=== PATIENT | female | born 1960 | race Two or more races ===

== ENCOUNTER 2019-01-02 22:37 | Emergency (ER) | payer OTHER ==
[2019-01-02] MEDS ORDERED: Albuterol/Ipratropium NEB.SOL* Albuterol 2.5 MG/Ipratropium 0.5 MG 3 ML INH ONE (22:56)
[2019-01-02] MEDS ORDERED: Acetaminophen TAB* 325 MG PO ONE (22:57)
[2019-01-02] MEDS ORDERED: methylPREDNISolone 125 MG* 2 ML VIAL IV ONE (23:08)
--- NOTE | 2019-01-02 23:13 | ED ---
Respiratory - HPI Summary HPI Summary: 58 year old female presents with cough today. She admits to sinus congestion for the past couple days. She states that symptoms started in her nose and then went down to lungs. She admits to little short of breath. She does have a history of reactive airway disease and has asthma when sick. She denies any smoking history. No chest pain. She has a cough that is productive. No fevers. No vomiting. No nausea vomiting. Has no sore throat. Has been using [id number] cough medications. - History of Current Complaint Chief Complaint: EDShortnessOfBreath Stated Complaint: SOB PER PT Time Seen by Provider: 01/02/19 22:50 Pain Intensity: 0 - Allergy/Home Medications Allergies/Adverse Reactions: Allergies Allergy/AdvReac Type Severity Reaction Status Date / Time hydrochlorothiazide Allergy Rash Verified 01/02/19 22:39 LODINE Allergy Hives Uncoded 01/02/19 22:39 PMH/Surg Hx/FS Hx/Imm Hx Endocrine/Hematology History: Denies: Hx Anticoagulant Therapy, Hx Diabetes Cardiovascular History: Denies: Hx Hypertension, Hx Pacemaker/ICD Respiratory History: Reports: Hx Asthma Denies: Hx Chronic Obstructive Pulmonary Disease (COPD) History: Denies: Hx Renal Disease Musculoskeletal History: Denies: Hx Osteoporosis Sensory History: Denies: Hx Hearing Aid Psychiatric History: Denies: Hx Panic Disorder - Cancer History Hx Chemotherapy: No Hx Radiation Therapy: No - Surgical History Surgery Procedure, Year, and Place: D&C. TUBAL LIGATION Infectious Disease History: No Infectious Disease History: Denies: Traveled Outside the [place] in Last 30 Days - Family History Known Family History: Positive: Non-Contributory - Social History Alcohol Use: None Substance Use Type: Reports: None Hx Tobacco Use: No Smoking Status (MU): Never Smoked Tobacco Review of Systems Negative: Fever Positive: Nasal Discharge Negative: Chest Pain Positive: Shortness Of Breath, Cough Negative: Abdominal Pain All Other Systems Reviewed And Are Negative: Yes Physical Exam Triage Information Reviewed: Yes Vital Signs On Initial Exam: Initial Vitals Temp Pulse Resp BP Pulse Ox 100.1 F 107 20 189/95 98 01/02/19 22:39 01/02/19 22:39 01/02/19 22:39 01/02/19 22:39 01/02/19 22:39 Vital Signs Reviewed: Yes Appearance: Positive: Well-Appearing Skin: Positive: Warm, Dry Head/Face: Positive: Normal Head/Face Inspection Eyes: Positive: Normal, Conjunctiva Clear ENT: Positive: Pharynx normal Respiratory/Lung Sounds: Positive: Breath Sounds Present, Wheezes Cardiovascular: Positive: Normal, RRR Abdomen Description: Positive: Nontender, Soft Bowel Sounds: Positive: Present Musculoskeletal: Positive: Normal Neurological: Positive: Normal Psychiatric: Positive: Normal Procedures - Sedation Patient Received Moderate/Deep Sedation with Procedure: No Diagnostics - Vital Signs Vital Signs Temp Pulse Resp BP Pulse Ox 01/02/19 22:39 100.1 F 107 20 189/95 98 - Laboratory Result Diagrams: 01/02/19 23:17 01/02/19 23:17 Lab Statement: Any lab studies that have been ordered have been reviewed, and results considered in the medical decision making process. - Radiology chest Radiology Interpretation Completed By: ED Physician Summary of Radiographic Findings: no pneumonia Disposition - Course Course Of Treatment: 58 year old female presents with cough today. She admits to sinus congestion for the past couple days. She states that symptoms started in her nose and then went down to lungs. She admits to little short of breath. She does have a history of reactive airway disease and has asthma when sick. She denies any smoking history. No chest pain. She has a cough that is productive. No fevers. No vomiting. No nausea vomiting. Has no sore throat. Has been using csmi-lek-[id number] cough medications. On exam lungs wheezing heard. wbc normal. Troponin 0. CRP elevated. Chest x-ray shows no pneumonia. gave breathing treatment. wbc normal. crp elevated. troponin zero. patient improved with breathing treatment. will give inhaler and steriod. told follow p with primary. patient understand and agrees with plan. - Differential Dx - Cardiopulmonary Differential Diagnoses - Cardiopulmonary: Asthma, Bronchitis, Influenza, Lower Resp Infection - Diagnoses Provider Diagnoses: Bronchitis Discharge ED - Sign-Out/Discharge Documenting (check all that apply): Patient Departure - Discharge Plan Condition: Good Disposition: HOME Patient Education Materials: Acute Bronchitis (ED) Referrals: Lynda Arevalo MD [Primary Care Provider] - Additional Instructions: Use Tessalon three times a day for cough Use inhaler one puff every 4 hours for cough as needed Take steroid once a day for 4 days Follow up with primary care physician in 5 days Return to ED if develop any new or worsening symptoms - Billing Disposition and Condition Condition: GOOD Disposition: Home
[2019-01-02 23:33] LABS: ABS Eosinophils 0.3 10^3/ul (0-0.6); ABS Lymphocytes 1.6 10^3/ul (1.0-4.8); ABS Monocytes 0.4 10^3/ul (0-0.8); ABS Neutrophils 5.5 10^3/ul (1.5-7.7); Eosinophil % 3.2 %; Hematocrit 35 % (35-47); Hemoglobin 12.2 g/dL (12.0-16.0); Lymphocyte % 20.1 %; Mean Corpuscular HGB Conc 35 g/dL (31-36); Mean Corpuscular Hemoglobin 30 pg (27-31); Mean Corpuscular Volume 86 fL (80-97); Mean Platelet Volume 7.7 fL (7.4-10.4); Nucleated Red Blood Cells % 0.1; Platelet Count 269 10^3/uL (150-450); Red Cell Distribution Width 13 % (10-15); White Blood Count 7.8 10^3/uL (3.5-10.8)
[2019-01-02 23:48] LABS: Albumin 4.6 g/dL (3.2-5.2); Albumin/Globulin Ratio 1.6 (1-3); BUN/Creatinine Ratio 12.1 (8-20); C Reactive Protein 66.56 mg/L (<8.01); Calcium 9.5 mg/dL (8.6-10.3); EGFR African American 69.5 (>60); EGFR Non-African American 57.4 (>60); Globulin 2.9 g/dL (2-4); Potassium 3.5 mmol/L (3.5-5.0); Total Bilirubin 0.5 mg/dL (0.2-1.0); Total Protein 7.5 g/dL (6.4-8.9)
[2019-01-03 00:35] LABS: Influenza A Molecular NEGATIVE (Negative); Influenza B Molecular NEGATIVE (Negative)
[2019-01-03 00:47] VITALS: BP 146/93
--- OUTSIDE RECORDS SUMMARY | 2019-01-07 14:37 | XMS REPORT | Continuity of Care Document ---
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 Helper [phone] Medicine Problems Description No Information Available Social History Type Date Description Comments Sex Unknown ETOH Use Currently consumes alcohol Tobacco Use Start: Unknown End: Patient is a former smoker Unknown Smoking Status Reviewed: 11/27/18 Patient is a former smoker Exercise Type/Frequency Exercises regularly Allergies, Adverse Reactions, Alerts Active Allergies Reaction Severity Comments Date Lodine 03/28/2016 Hydrochlorothiazide 03/28/2016 Medications Active Medications SIG Qnty Indications Ordering Provider Date Pantoprazole Sodium 1 by mouth 30tabs Other Ordering 11/27/2018 40mg every day Provider Tablets DR Bupropion HCL ER (XL) 1 by mouth Other Ordering 11/27/2018 every day Provider 150mg Tablets ER 24HR Montelukast Sodium 1 by mouth 30tabs Other Ordering 11/27/2018 10mg every day Provider Tablets Vitamin D2 take 50,000 12tabs Other Ordering 11/27/2018 2000Unit units once a Provider Tablets week Citalopram Lynda Arevalo, Hydrobromide 40mg Tablets Trazodone HCL Unknown 50mg Tablets Meloxicam Lynda Arevalo, 15mg Tablets Valacyclovir HCL Unknown 1gm Tablets Fluoxetine HCL Unknown 20mg Capsules Alprazolam Unknown 0.25mg Tablets Immunizations Description No Information Available Vital Signs Date Vital Result Comment 11/27/2018 8:18am Height 65 inches 5'5" Weight 168.00 lb Heart Rate 86 /min BP Systolic 132 mmHg BP Diastolic 70 mmHg O2 % BldC Oximetry 97 % BMI (Body Mass Index) 28.0 kg/m2 Neck Circumference in inches 14 04/25/2016 1:24pm Height 65 inches 5'5" Weight 184.00 lb Heart Rate 88 /min BP Systolic 129 mmHg BP Diastolic 82 mmHg Body Temperature 97.1 F Pain Level 1 BMI (Body Mass Index) 30.6 kg/m2 Results Description No Information Available Procedures Description No Information Available Medical Devices Description No Information Available Encounters Type Date Location Provider Dx Diagnosis Office Visit 11/27/2018 [facility] Irena Verdin MD R06.83 Snoring 8:30a [facility] R53.83 Other fatigue G25.81 Restless legs syndrome Assessments Date Code Description Provider 11/27/2018 R06.83 Snoring Irena Verdin MD 11/27/2018 R53.83 Other fatigue Irena Verdin MD 11/27/2018 G25.81 Restless legs syndrome Irena Verdin MD Plan of Treatment 11/27/2018 - Irena Verdin, MDR06.83 SnoringNew Orders:Home Sleep Testing, Scheduled: 11/27/18Follow up:1 weekR53.83 Other ogkadmqI85.81 Restless legs syndromeNew Labs:Ferritin, Ordered: 11/27/18Iron & Iron Binding Capacity, Ordered: 11/27/18TSH (Thyroid Stim Horm), Ordered: 11/27/18Magnesium, Ordered: 11/27/18 Functional Status Description No Information Available Mental Status Description No Information Available Referrals Description No Information Available
--- OUTSIDE RECORDS SUMMARY | 2019-01-07 14:37 | XMS REPORT | Continuity of Care Document ---
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 Medicine Problems Description No Information Available Social History Type Date Description Comments Sex Unknown ETOH Use Currently consumes alcohol Tobacco Use Start: Unknown End: Patient is a former smoker Unknown Smoking Status Reviewed: 12/13/18 Patient is a former smoker Exercise Type/Frequency Exercises regularly Allergies, Adverse Reactions, Alerts Active Allergies Reaction Severity Comments Date Lodine 03/28/2016 Hydrochlorothiazide 03/28/2016 Medications Active Medications SIG Qnty Indications Ordering Date Provider Vitamin D 1 by mouth every 90tabs Nydia 12/13/2018 (Cholecalciferol) TRACIE Baron 25mcg (1000 Ut) Tablets Pantoprazole Sodium 1 by mouth every 30tabs Other Ordering 11/27/2018 day Provider 40mg Tablets DR Bupropion HCL ER 1 by mouth every Other Ordering 11/27/2018 (XL) day Provider 150mg Tablets ER 24HR Montelukast Sodium 1 by mouth every 30tabs Other Ordering 11/27/2018 day Provider 10mg Tablets Citalopram Irina, Hydrobromide MD Lynda 40mg Tablets Trazodone HCL Unknown 50mg Tablets Meloxicam Irina, 15mg MD Lynda Tablets Valacyclovir HCL Unknown 1gm Tablets Fluoxetine HCL Unknown 20mg Capsules Alprazolam Unknown 0.25mg Tablets Atorvastatin Calcium Take 1 Tablet By Unknown Mouth Every Evening 20mg Tablets For High Cholesterol History Medications Vitamin D2 take 50,000 units 12tabs Other Ordering 11/27/2018 - 2000Unit once a week Provider 12/13/2018 Tablets Immunizations Description No Information Available Vital Signs Date Vital Result Comment 12/13/2018 1:55pm Height 65 inches 5'5" Weight 167.25 lb Heart Rate 87 /min BP Systolic 136 mmHg BP Diastolic 76 mmHg O2 % BldC Oximetry 95 % BMI (Body Mass Index) 27.8 kg/m2 11/27/2018 8:18am Height 65 inches 5'5" Weight 168.00 lb Heart Rate 86 /min BP Systolic 132 mmHg BP Diastolic 70 mmHg O2 % BldC Oximetry 97 % BMI (Body Mass Index) 28.0 kg/m2 Neck Circumference in inches 14 Results Test Acquired Date Facility Test Result H/L Range Note Laboratory test 12/03/2018 [facility] Ferritin 16.2 ng/mL Normal 11-307 finding [address] [place], [place] [id number] [phone] Iron & Iron 12/03/2018 [facility] Iron 57 g/dL Normal 50- 212 Binding [address]acity [address] [place] [address] [phone] Unsaturated Iron Binding < 369 g/dL Total Iron Binding Capacity 384 g/dL Normal 250-450 Transferrin 274 mg/dL Normal 203-362 % Iron Saturation 15 % Normal 15-55 Laboratory 12/03/2018 [facility] TSH (Thyroid 2.71 Normal 0.34 -5.60 test finding [address] Stim Horm) mcIU/mL [place], [place] [id number] [phone] Magnesium 2.2 mg/dL Normal 1.9-2.7 Procedures Date Code Description Status 11/27/2018 14456 Sleep Study Unattended,HRT Rate,Oxygen Sat,Resp Completed Effort/Airflow Medical Devices Description No Information Available Encounters Type Date Location Provider Dx Diagnosis Office Visit 11/27/2018 [facility] Irena Verdin MD R06.83 Snoring 8:30a [facility] R53.83 Other fatigue G25.81 Restless legs syndrome Assessments Date Code Description Provider 12/13/2018 G47.33 Obstructive sleep apnea (adult) (pediatric) Nydia Baron NP 12/13/2018 R53.83 Other fatigue Nydia Baron NP 12/13/2018 G25.81 Restless legs syndrome Nydia Baron NP 11/27/2018 G47.33 Obstructive sleep apnea (adult) (pediatric) Irena Verdin MD 11/27/2018 R06.83 Snoring Irena Verdin MD 11/27/2018 R53.83 Other fatigue Irena Verdin MD 11/27/2018 G25.81 Restless legs syndrome Irena Verdin MD Plan of Treatment Future Appointment(s):01/31/2019 11:00 am - Nydia Baron NP at [facility]12/13/2018 - Nydia Baron NPG47.33 Obstructive sleep apnea (adult) (pediatric)Follow up:6 weeksRecommendations:You are being set up with CPAP for your sleep apnea through [facility] . They will call you to set up an appointment to get fit for a mask and pepper picker your machine. If you have difficulty with your equipment, or need to replace your mask or hoses, please contact your homecare agency. If you have any further questions, please call the [facility] at Ifyou have any sleepiness while driving you MUST avoid operating a vehicle or machinery. If you feel tired while driving pot puller and take a nap or switch drivers. If you know you are sleepy and need togo somewhere, arrange for a ride or use public transportation. It is very important to not risk yoursafety or the safety of others.R53.83 Other calgxqvH27.81 Restless legs syndromeRecommendations:Your ferritin level is low which can cause restless legs. Please start taking iron supplementation. You can start with every other day dosing. Iron should be taken with calcium to help with absorption.Vitron C is a formulation that includes Vitamin C and Iron in on pill. Functional Status Description No Information Available Mental Status Description No Information Available Referrals Description No Information Available
--- OUTSIDE RECORDS SUMMARY | 2019-01-07 14:37 | XMS REPORT | Continuity of Care Document ---
:1960 External Reference #:[id number] Author Name Lynda Arevalo MD Address [address] [place] [id number] Care Team Providers Name Role Phone Marii Verdin MD - Pulmonary Care Team Information [employer] [phone] Disease Problems Active Problems Provider Date Allergic rhinitis Lynda Arevalo MD Onset: 11/04/2014 Moderate recurrent major depression Lynda Arevalo MD Onset: 11/04/2014 Generalized anxiety disorder Lynda Arevalo MD Onset: 11/04/2014 Pure hypercholesterolemia Lynda Arevalo MD Onset: 11/04/2014 Mixed hyperlipidemia Lynda Arevalo MD Onset: 03/08/2015 Vitamin D deficiency Lynda Arevalo MD Onset: 03/08/2015 Eustachian tube disorder Lynda Arevalo MD Onset: 05/28/2015 Obesity Lynda Arevalo MD Onset: 06/05/2016 Degenerative joint disease involving multiple Lynda Arevalo MD Onset: joints Atrophic vaginitis Lynda Arevalo MD Onset: 05/17/2017 Essential hypertension Lynda Arevalo MD Onset: 06/18/2018 Social History Type Date Description Comments Sex Unknown ETOH Use Currently consumes Beer or wine once a alcohol day Tobacco Use Start: Unknown End: Patient is a former From age 19 till 54. Unknown smoker I was never a heavy smoker. Smoked on and off for years with breaks lasting years. Never smoked more than a pack a week. most recently smoked ~1-2 cigarettes a day for one years, prior to that none for 5 years. Recreational Drug Use Never Used Drugs Smoking Status Reviewed: 09/05/14 Patient is a former From age 19 till 54. smoker I was never a heavy smoker. Smoked on and off for years with breaks lasting years. Never smoked more than a pack a week. most recently smoked ~1-2 cigarettes a day for one years, prior to that none for 5 years. Allergies, Adverse Reactions, Alerts Active Allergies Reaction Severity Comments Date Lodine Urticaria Mild Tolerated other Nsaid 11/04/2014 Rx Hydrochlorothiazide Dark pigmentation on Mild 11/04/2014 chest Medications Active Medications SIG Qnty Indications Ordering Provider Date Asmanex HFA inhale 1 puff by 1units J45.20 Howell Olive 01/07/2019 200mcg/Act mouth daily in MD Irina Aerosol the evening for asthma Cpap G47.33 Marii Verdin, 01/05/2019 Prednisone Take 1 Tablet By J98.01 Unknown 01/04/2019 50mg Tablets Mouth Once Daily For 4 Days Vitron-C 1 by mouth every E61.1 Marii Verdin, 12/20/2018 65-125mg day MD Tablets G25.81 Bupropion Hydrochloride take one tablet by 90tabs F33.1 Lynda Arevalo, 10/18/2018 ER (XL) mouth every day in MD 150mg Tablets ER the morning for 24HR major depressive disorder Estrace Use 1 g of cream, 85gm N95.2 Howellyulia Arevalo, 06/13/2018 0.1mg/GM Cream two times per week Pantoprazole Sodium take 1 tablet by 90tabs R05 Lynda Arevalo, 2017 40mg mouth every day one Tablets DR half hour before dinner K21.9 Denavir Apply 1 application 5gm B00.1 Howell Olive 10/10/2016 1% Cream topically to affected MD Irina area every 2 hours for 4 days for herpes simplex affecting the lips or nostrils Trazodone HCL take 1/2 tablet by 45tabs F51.02 Howell A 07/06/2016 50mg mouth at bedtime MD Irina Tablets Valacyclovir HCL 2 tablets orally 4tabs B00.1 Howell A 12/27/2015 1gm every 12 hours for 1 MD Irina Tablets day Vitamin D3 1 by mouth every day E55.9 Howell A 07/07/2015 2000Unit MD Irina Tablets Atorvastatin Calcium take 1 tablet by 90tabs E78.2 Howell A 03/08/2015 20mg mouth every evening MD Irina Tablets for high cholesterol Cetirizine HCL take 1 tablet by J30.9 Unknown 02/05/1999 10mg mouth daily for Tablets hayfever Ventolin HFA take 2 puffs every 4 1units J45.20 Howell A 02/05/1999 108(90Base) hours as needed for MD Irina mcg/Act Aerosol bronchospasm R05 Montelukast Sodium take 1 tablet by 90tabs J45.20 Howell A Irina, 02/05 10mg mouth every MD Tablets evening for hay fever J30.9 Fluticasone Propionate inhale 2 sprays J30.9 Unknown 02/05/1994 into nostril daily 50mcg/Act Suspension in each nostril for allergic rhinitis Alprazolam take 1 tablet by 30tabs F41.1 Howell A Irina, 02/05/1994 0.25mg Tablets mouth three times MD daily as needed for anxiety maximum daily dose of 3 per day Immunizations CPT Code Status Date Vaccine Lot # [id number] Given 11/05/2017 Influenza Vaccine Quadrivalent Preser/Antibiotic Free [place] Use [address]687 Given 07/27/2017 Shingrix (Shingles) Vaccine [id number] Given 07/27/2017 Prevnar (Pneumonia) 13 Vaccine 22138 Given 10/25/2016 Influenza Vaccine Quadrivalent Preser/Antibiotic Free Im Use 04700 Given 11/05/2015 Influenza Virus Split 3 Yrs And Above For Intramuscular Use 29259 Given 11/04/2014 Pneumococcal Vaccine 2Yrs Or Older Pneumococcal [id number] 89616 Given 11/04/2014 Tdap-Tetanus, Diphtheria TDap [id number] Toxoids/Acellular Pertussis Vaccine 7+ Vital Signs Date Vital Result Comment 01/07/2019 11:35am Heart Rate 70 /min BP Systolic 155 mmHg BP Diastolic 80 mmHg BMI (Body Mass Index) 28.4 kg/m2 Weight 164.00 lb Height 63.75 inches 5'3.75" 09/23/2018 11:44am Heart Rate 62 /min BP Systolic 130 mmHg BP Diastolic 80 mmHg Weight 165.00 lb Results Test Acquired Date Facility Test Result H/L Range Note CBC Auto 01/02/2019 [facility] White Blood 7.8 10^3/uL Normal 3.5-10.8 [place] [address] Count [phone] Red Blood Count 4.10 10^6/uL Normal 3.70-4.87 Hemoglobin 12.2 g/dL Normal 12.0-16.0 Hematocrit 35 % Normal 35-47 Mean Corpuscular Volume 86 fL Normal 80-97 Mean Corpuscular Hemoglobin 30 pg Normal 27-31 Mean Corpuscular HGB Conc 35 g/dL Normal 31-36 Red Cell Distribution Width 13 % Normal 10-15 Platelet Count 269 10^3/uL Normal 150-450 Mean Platelet Volume 7.7 fL Normal 7.4-10.4 Abs Neutrophils 5.5 10^3/uL Normal 1.5-7.7 Abs Lymphocytes 1.6 10^3/uL Normal 1.0-4.8 Abs Monocytes 0.4 10^3/uL Normal 0-0.8 Abs Eosinophils 0.3 10^3/uL Normal 0-0.6 Abs Basophils 0.0 10^3/uL Normal 0-0.2 Abs Nucleated RBC 0.0 10^3/uL Granulocyte % 70.6 % Lymphocyte % 20.1 % Monocyte % 5.8 % Eosinophil % 3.2 % Basophil % 0.3 % Nucleated Red Blood Cells % 0.1 Laboratory test 01/02/2019 [facility] Lactic Acid 1.4 mmol/L Normal 0.5-2.0 1 [place] [address] [phone] B-Type Natriuretic Peptide BNP 18 pg/mL <=100 Comp Metabolic 01/02/2019 [facility] Sodium 138 mmol/L Normal 135-145 Panel [place], [place] [id number] [phone] Potassium 3.5 mmol/L Normal 3.5-5.0 Chloride 103 mmol/L Normal 101-111 Co2 Carbon Dioxide 27 mmol/L Normal 22-32 Anion Gap 8 mmol/L Normal 2-11 Glucose 117 mg/dL High 70-100 Blood Urea Nitrogen 12 mg/dL Normal 6-24 Creatinine 0.99 mg/dL High 0.51-0.95 BUN/Creatinine Ratio 12.1 Normal 8-20 Calcium 9.5 mg/dL Normal 8.6-10.3 Total Protein 7.5 g/dL Normal 6.4-8.9 Albumin 4.6 g/dL Normal 3.2-5.2 Globulin 2.9 g/dL Normal 2-4 Albumin/Globulin Ratio 1.6 Normal 1-3 Total Bilirubin 0.50 mg/dL Normal 0.2-1.0 Alkaline Phosphatase 72 U/L Normal 34-104 Alt 17 U/L Normal 7-52 Ast 25 U/L Normal 13-39 Egfr Non- 57.4 >60 Egfr 69.5 >60 2 Laboratory test 01/02/2019 [facility] C Reactive 66.56 mg/L High <8.01 [place] [address] Protein [phone] Troponin-I (TnI) 0.00 ng/mL <0.03 3 Influenza A & B 01/02/2019 [facility] Flu AB Disclaimer (SEE NOTE) 4 [place] [address] [phone] Influenza A Molecular NEGATIVE Negative 5 Influenza B Molecular NEGATIVE Negative CBC No Diff 12/30/2018 [facility] White Blood 5.0 10^3/uL Normal 3.5-10.8 [place] [address] Count [phone] Red Blood Count 3.99 10^6/uL Normal 3.70-4.87 Hemoglobin 11.7 g/dL Low 12.0-16.0 Hematocrit 35 % Normal 35-47 Mean Corpuscular Volume 87 fL Normal 80-97 Mean Corpuscular Hemoglobin 29 pg Normal 27-31 Mean Corpuscular HGB Conc 34 g/dL Normal 31-36 Red Cell Distribution Width 13 % Normal 10-15 Platelet Count 254 10^3/uL Normal 150-450 Mean Platelet Volume 8.3 fL Normal 7.4-10.4 Comp Metabolic 12/30/2018 [facility] Sodium 141 mmol/L Normal 135-145 [place] [address] [phone] Potassium 3.7 mmol/L Normal 3.5-5.0 Chloride 107 mmol/L Normal 101-111 Co2 Carbon Dioxide 27 mmol/L Normal 22-32 Anion Gap 7 mmol/L Normal 2-11 Glucose 97 mg/dL Normal 70-100 Blood Urea Nitrogen 22 mg/dL Normal 6-24 Creatinine 0.90 mg/dL Normal 0.51-0.95 BUN/Creatinine Ratio 24.4 High 8-20 Calcium 9.1 mg/dL Normal 8.6-10.3 Total Protein 6.8 g/dL Normal 6.4-8.9 Albumin 4.5 g/dL Normal 3.2-5.2 Globulin 2.3 g/dL Normal 2-4 Albumin/Globulin Ratio 2.0 Normal 1-3 Total Bilirubin 0.50 mg/dL Normal 0.2-1.0 Alkaline Phosphatase 61 U/L Normal 34-104 Alt 12 U/L Normal 7-52 Ast 16 U/L Normal 13-39 Egfr Non- 64.1 >60 Egfr 77.5 >60 6 Lipid Profile 12/30/2018 [facility] Triglycerides 113 mg/dL 7 (Trig/Chol/HDL) [place] [address] [phone] Cholesterol 185 mg/dL 8 HDL Cholesterol 55.9 mg/dL 9 LDL Cholesterol 107 mg/dL 10 Laboratory test 12/30/2018 [facility] Hemoglobin A1c 5.4 % Normal 4.0-5.6 11 [place] [address] (Glyco HGB) [phone] TSH (Thyroid Stim Horm) 3.09 mcIU/mL Normal 0.34-5.60 12 Xray 12/20/2018 [facility] Mammography, Normal [address] Screening, [place] [address] Bilateral [phone] Laboratory test 09/10/2018 [facility] Glucose 101 mg/dL High 70-10 13 [place] [address] 0 [phone] Hemoglobin A1c (Glyco HGB) 5.5 % Normal 4.0-5.6 14 LDL Cholesterol Direct 97 mg/dL <130 15 Triglyceride 171 mg/dL High <150 16 TSH (Thyroid Stim Horm) 3.80 mcIU/mL Normal 0.34-5.60 17 1 [facility] Severe Sepsis and Septic Shock Management Bundle Measure requires all lactic acids initially measuring >2.0 mmol/L be repeated. 2 Because ethnic data is not always readily available, this report includes an eGFR for both -Americans and non- Americans. The National Kidney Disease Education Program (NKDEP) does not endorse the use of the MDRD equation for patients that are not between the ages of 18 and 70, are , have extremes of body size, muscle mass, or nutritional status, or are non- or non-. According to the National Kidney Foundation, irrespective of diagnosis, the stage of the disease is based on the level of kidney function: Stage Description GFR(mL/min/1.73 m(2)) 1 Kidney damage with normal or decreased GFR 90 2 Kidney damage with mild decrease in GFR 60-89 3 Moderate decrease in GFR 30-59 4 Severe decrease in GFR 15-29 5 Kidney failure <15 (or dialysis) 3 Troponin-I testing on Plasma Separator Tubes (PST) has a known false positive rate of 0.20-0.40%. All positive troponins reflex immediately to secondary confirmatory testing. Using the [employer] DxI 800 Access Immunoassay systems, the 99th percentile upper reference limit was demonstrated to be < 0.03 ng/mL. 4 Suboptimal collection technique may reduce sensitivity of test. Refer to the [facility] Test Catalog for collection information: [email or web address] As with all diagnostic procedures, the laboratory results obtained should be used in conjunction with other clinical information available to the physician, including confirmation by another method, as applicable. 5 [employer]ger Automatic: [id number] 6 Because ethnic data is not always readily available, this report includes an eGFR for both -Americans and non- Americans. The National Kidney Disease Education Program (NKDEP) does not endorse the use of the MDRD equation for patients that are not between the ages of 18 and 70, are , have extremes of body size, muscle mass, or nutritional status, or are non- or non-. According to the National Kidney Foundation, irrespective of diagnosis, the stage of the disease is based on the level of kidney function: Stage Description GFR(mL/min/1.73 m(2)) 1 Kidney damage with normal or decreased GFR 90 2 Kidney damage with mild decrease in GFR 60-89 3 Moderate decrease in GFR 30-59 4 Severe decrease in GFR 15-29 5 Kidney failure <15 (or dialysis) 7 Desirable: <150 Borderline High: 150-199 High: 200-499 Very High: >500 8 Desirable: <200 Borderline High: 200-239 High: >239 9 Low: <40 Desirable: 40-60 High: >60 10 Desirable: <100 Near Optimal: 100-129 Borderline High: 130-159 High: 160-189 Very High: >189 11 Therapeutic target for the treatment of diabetes mellitus patients is <7% HBA1C, and in selective patients <6.0%. Please refer to [place] diabetic care guidelines for further information. 12 FASTING 13 FASTING 14 Therapeutic target for the treatment of diabetes mellitus patients is <7% HBA1C, and in selective patients <6.0%. Please refer to [place] diabetic care guidelines for further information. 15 Desirable: <100 Near Optimal: 100-129 Borderline High: 130-159 High: 160-189 Very High: >189 16 Desirable: <150 Borderline High: 150-199 High: 200-499 Very High: >500 17 FASTING Procedures Date Code Description Status 12/20/2018 [id number] Mammogram Completed 12/14/2017 [id number] Mammogram Completed 12/11/2016 [id number] Mammogram Completed 12/10/2015 [id number] Mammogram Completed 12/08/2014 [id number] Bone Mineral Density Test Completed 12/08/2014 [id number] Mammogram Completed 10/30/2014 [id number] Colonoscopy Completed Medical Devices Description No Information Available Encounters Type Date Location Provider Dx Diagnosis Office Visit 01/07/2019 Main Office Lynda Arevalo, Z00.01 Encounter for 11:20a general adult medical exam w abnormal findings J98.01 Acute bronchospasm E78.2 Mixed hyperlipidemia I10 Essential (primary) hypertension F33.1 Major depressive disorder, recurrent, moderate E61.1 Iron deficiency Office Visit 09/23/2018 11:40a Main Office Lynda Weaver0 Essential ( primary) MD Irina hypertension E78.2 Mixed hyperlipidemia R73.01 Impaired fasting glucose F33.1 Major depressive disorder, recurrent, moderate R53.83 Other fatigue R06.83 Snoring Assessments Date Code Description Provider 01/07/2019 Z00.01 Encounter for general adult medical Lynda Arevalo MD examination with abnormal findings 01/07/2019 J98.01 Acute bronchospasm Lynda Arevalo MD 01/07/2019 E78.2 Mixed hyperlipidemia Lynda Arevalo MD 01/07/2019 I10 Essential (primary) hypertension Lynda Arevalo MD 01/07/2019 F33.1 Major depressive disorder, recurrent, Lynda Arevalo MD moderate 01/07/2019 E61.1 Iron deficiency Lynda Arevalo MD 09/23/2018 I10 Essential (primary) hypertension Lynda Arevalo MD 09/23/2018 E78.2 Mixed hyperlipidemia Lynda Arevalo MD 09/23/2018 R73.01 Impaired fasting glucose Lynda Arevalo MD 09/23/2018 F33.1 Major depressive disorder, recurrent, Lynda Arevalo MD moderate 09/23/2018 R53.83 Other fatigue Lynda Arevalo MD 09/23/2018 R06.83 Snoring Lynda Arevalo MD Plan of Treatment 01/07/2019 - Lynda Arevalo MDZ00.01 Encounter for general adult medical examination with abnormal findingsComments:Age, sex and risk appropriate preventive care recommendations discussed with patient. Physical findings discussed in detail.Patient verbalized understanding.J98.01 Acute bronchospasmComments:After use of CPAP.Likely aerophagia and GERD related aspiration and acute bronchospasm.E78.2 Mixed hyperlipidemiaComments:Clinically stable. Continue recommended plan of care. Follow up recommendations discussed. Encouraged to continue efforts related to modification of life style.I10 Essential (primary) hypertensionComments:Elevation is likely due to use of steroids.Per patient prior to use of steroids her BP was well controlled.She is advised to monitor and give me update and see me if it is no better after few weeks.Sheverbalized understanding.F33.1 Major depressive disorder, recurrent, moderateComments:PHQ 9 score of 9.Clinically stable. Continue recommended plan of care. Follow up recommendations discussed. Encouraged to continue efforts related to modification of life style.E61.1 Iron deficiencyComments:No records available.She is advised to stop donating blood and will monitor her value with next visit.AllNew Medication:Asmanex HFA 200 mcg/Act - inhale 1 puff by mouth daily in the evening for asthma Functional Status Description No Information Available Mental Status Description No Information Available Referrals Refer to Reason for Referral Status Appt Date Marii Verdin MD Closed 11/25/[address] [place] [id number] [phone]
== END 2019-01-03 01:16 | disposition home or self-care (01) ==
LOC: ED 22:37
DX: J40 Bronchitis, not specified as acute or chronic (principal); Z98.51 Tubal ligation status; Z88.6 Allergy status to analgesic agent; Z88.8 Allergy status to other drugs, medicaments and biological substances
CPT/HCPCS: 36415; 71046; 80053; 83605; 83880; 84484; 85025; 86140; 87040; 93005; 96374; 99283; A9270-GY; J2930